=== PATIENT | female | born 1970 | race Caucasian/White ===

== ENCOUNTER → 2016-08-26 | Day surgery (SDC) | payer BC ==
[2016-08-16 09:27] VITALS: Ht 166.4 cm; Wt 63.6 kg
[~2016-08-26] VITALS: Ht 166.4 cm; Wt 63.6 kg
[~2016-08-26] MED LIST: BUPR-79 PO; DEXAMETHASONE SOD INJ 4 MG/ML VIAL ONE; ENDOSCOPIC MARKER 5 ML SYR ONE; FENTANYL CITRATE INJ 50 MCG/1 ML 2 ML VIAL ONE; LIDOCAINE HCL 2% 2 ML VIAL (20MG/ML) ONE; LIOT5TAB9 PO; METHYLENE BLUE 1% 10 ML VIAL ONE; MIDAZOLAM HCL 1 MG/ML 2ML VIAL ONE; ONDANSETRON INJ 2 MG/ML 2 ML VIAL ONE; PROPOFOL IV EMULSION 10 MG/ML 20 ML VIAL IV ONE; SODIUM CHLORIDE 0.9% 500ML 500 ML IV ONE
--- NOTE | 2016-08-26 13:12 | Endo History and Physical ---
History & Physical Date of Service: Aug 26, 2016. Chief Complaint: large polyp Referring Physician: Mayra NORIEGA History of Present Illness sigmoid colon polyp for EMR Past Surgical History Hx Cardiac Surgery: No Hx Internal Defibrillator: No Hx Pacemaker: No Hx Abdominal Surgery: No Hx of Implantable Prosthesis: No Hx Post-Op Nausea and Vomiting: Yes Hx Cancer Surgery: No Hx Thoracic Surgery: No Hx Orthopedic: Yes (RT SHOULDER, RT HIP) Hx Urinary Tract Surgery: No Family History Colon CA Social History Smoking Status: Former Smoker Hx Substance Use: No Hx Alcohol Use: Yes (2-3 DRINKS/NIGHT) Allergies Coded Allergies: Codeine (Verified Allergy, Unknown, RASH AND HIVES, 08/16/16) Current Medications Reported Home Medications Medications Dose Route/Sig Max Daily Dose Days Date Category Wellbutrin Sr (Bupropion HCl) 150 Mg Ertab 150 Mg PO BID 08/16/16 Reported Liothyronine Sodium 5 Mcg Tab 1 Tab PO BID 08/16/16 Reported Vital Signs Weight (Kilograms): 63.64 Height (Feet): 5 Height (Inches): 5.5 Date Time Temp Pulse Resp B/P Pulse Ox O2 Delivery O2 Flow Rate FiO2 08/26/16 12:37 37 67 20 120/71 99 Room Air Physical Exam AAO x3 Nl s1s2 Lungs CTA Abd soft NT ND + BS - CCE Assessment and Plan colonoscopy/EMR
--- NOTE | 2016-08-26 14:36 | GI REPORT ---
Procedure Date: 08/26/2016 1:01 PM THIS REPORT HAS BEEN AMENDED Addendum Number: 1 Addendum Date: 08/26/2016 3:57:11 PM The blood loss stated in the original note is incorrect. Blood loss is estimated to be 2 ml. Hemostasis was achieved at end of procedure with clips and epinephrine injection. Procedure: Colonoscopy Indications: Therapeutic procedure for colon polyps Medicines: Propofol per Anesthesia Complications: No immediate complications. Estimated blood loss: Minimal. Estimated Blood Loss: Estimated blood loss was minimal. Procedure: Pre-Anesthesia Assessment: - Prior to the procedure, a History and Physical was performed, and patient medications and allergies were reviewed. The patient's tolerance of previous anesthesia was also reviewed. The risks and benefits of the procedure and the sedation options and risks were discussed with the patient. All questions were answered, and informed consent was obtained. Prior Anticoagulants: The patient has taken no previous anticoagulant or antiplatelet agents. ASA Grade Assessment: II - A patient with mild systemic disease. After reviewing the risks and benefits, the patient was deemed in satisfactory condition to undergo the procedure. After I obtained informed consent, the scope was passed under direct vision. Throughout the procedure, the patient's blood pressure, pulse, and oxygen saturations were monitored continuously. The scope was introduced through the anus and advanced to the cecum, identified by appendiceal orifice and ileocecal valve. The colonoscopy was performed without difficulty. The patient tolerated the procedure well. The quality of the bowel preparation was good. Findings: The perianal and digital rectal examinations were normal. Pertinent negatives include normal sphincter tone, no palpable rectal lesions and no anal lesion or abnormality was detected. A 3 mm polyp was found at 10 cm proximal to the anus. The polyp was sessile. The polyp was removed with a cold biopsy forceps. Resection and retrieval were complete. Estimated blood loss was minimal. Verification of patient identification for the specimen was done by the physician and manufacturing plant technician using the patient's name and medical record number. A 30 mm polyp was found at 20 cm proximal to the anus. The polyp was multi-lobulated and sessile. An endoscopic mucosal resection was performed with initial injection and saline /methylene blue lift to lui the perimeter and lift the lesion. Area was successfully injected with 5 mL saline with methylene blue for a lift polypectomy. The polyp was removed with a piecemeal technique using a hot snare. Resection and retrieval were complete using a snare. Four hemostatic clips were successfully placed (MR conditional). Area was successfully injected with 16 mL of a 1:10,000 solution of epinephrine for hemostasis of bleeding caused by the procedure. Area was successfully injected with 10 mL of a 1:20,000 solution of epinephrine for hemostasis of bleeding caused by the procedure. The exam was otherwise without abnormality. The retroflexed view of the distal rectum and anal verge was normal and showed no anal or rectal abnormalities. Impression: - One 3 mm polyp at 10 cm proximal to the anus, removed with a cold biopsy forceps. Resected and retrieved. - One 30 mm polyp at 20 cm proximal to the anus, removed piecemeal using a hot snare. Resected and retrieved. Injected. Clips (MR conditional) were placed. - The examination was otherwise normal. - The distal rectum and anal verge are normal on retroflexion view. Recommendation: - Discharge patient to home (ambulatory). - Patient has a contact number available for emergencies. The signs and symptoms of potential delayed complications were discussed with the patient. Return to normal activities tomorrow. Written discharge instructions were provided to the patient. - Clear liquid diet today. - Repeat colonoscopy in 6 months for surveillance based on pathology results. MD Lane Betancourt MD 08/26/2016 2:35:27 PM This report has been signed electronically. Note Initiated On: 08/26/2016 1:[address] Betancourt MD 08/26/2016 3:58:31 PM This report has been signed electronically.
--- NOTE | 2016-08-26 14:38 | Discharge Instructions ---
Endoscopy Patient Instructions Date / Procedure(s) Performed Aug 26, 2016. Colonoscopy Allergy Information Coded Allergies: Codeine (Verified Allergy, Unknown, RASH AND HIVES, 08/16/16) Discharge Date / Findings Aug 26, 2016. colon polyps removed by EMR Medication Instructions Restart Stopped Medication(s): Reported Home Medications Medications Dose Route/Sig Max Daily Dose Days Date Category Wellbutrin Sr (Bupropion HCl) 150 Mg Ertab 150 Mg PO BID 08/16/16 Reported Liothyronine Sodium 5 Mcg Tab 1 Tab PO BID 08/16/16 Reported Reported Home Medications Medications Dose Route/Sig Max Daily Dose Days Date Category Wellbutrin Sr (Bupropion HCl) 150 Mg Ertab 150 Mg PO BID 08/16/16 Reported Liothyronine Sodium 5 Mcg Tab 1 Tab PO BID 08/16/16 Reported Provider Instructions Activity Restrictions - No exercising or heavy lifting for 24 hours. - Do not drink alcohol the day of the procedure. - Do not drive a car or operate machinery until the day after the procedure. - Do not make any important decisions or sign important papers in 24 hours after the procedure. Following Day: - Return to full activity which may include returning to work/school. Diet Start your diet with liquids and light foods (jello, soup, juice, toast). Then eat your usual diet if not nauseated. Treatment For Common After Affects For mild abdominal pain, bloating, or excessive gas: - Rest - Eat lightly - Lie on right side Follow-Up Information Follow-up with Mayra NORIEGA as scheduled Anesthesia Information What You Should Know You have had a procedure that required some medicine to reduce anxiety and discomfort. This treatment is called moderate sedation. After receiving the treatment, you may be sleepy, but you will be able to breathe on your own. The effects of the treatment may last for several hours. Follow these instructions along with Activity/Diet recommendations noted above: * Do NOT do anything where dizziness or clumsiness would be dangerous. * Rest quietly at home today, then you can be up and about tomorrow. * Have a responsible person stay with you the rest of today. * You may have had an I.V. today. If so, you may take the dressing off later today. Recommendations Call your doctor if: * Trouble breathing * Continuous vomiting for more than 24 hours * Temperature above 101 degrees * Severe abdominal pain or bloating * Pain not relieved by pain medicine ordered * There is increased drainage or redness from any incision * A large amount of rectal bleeding greater than 2-3 tablespoons. (If you had a polyp/s removed or have hemorrhoids, a small amount of blood - from the rectum is to be expected.) * You have any unanswered questions or concerns. IN THE EVENT OF A SERIOUS EMERGENCY, GO TO THE NEAREST EMERGENCY ROOM Your discharge instructions were prepared by provider Lane Martinez. Patient Instructions Signature Page Staci Titus Patient (or Guardian) Signature/Date: I have read and understand the instructions given to me by my caregivers. Caregiver/RN/Doctor Signature/Date: The above-named patient and/or guardian has received patient instructions on this date. + Original Patient Signature Page (only) stays with chart. Please make copy for patient.
[2016-08-26 17:49] VITALS: BP 116/66; PULSE 64; O2SAT 98
--- NOTE | 2016-08-26 19:22 | Anesthesiology Progress Note ---
Anesthesia Post Op Note Date & Time Aug 26, 2016 at 19:20 Vital Signs Pain Intensity: 3 Vital Signs Past 12 Hours Date Time Temp Pulse Resp B/P Pulse Ox O2 Delivery O2 Flow Rate FiO2 08/26/16 17:49 64 16 116/66 98 Room Air 08/26/16 16:44 57 16 150/76 97 Room Air 08/26/16 16:09 59 16 152/72 97 Room Air 08/26/16 15:39 62 16 158/83 98 Room Air 08/26/16 15:24 64 20 152/74 96 Room Air 08/26/16 15:09 64 16 141/62 97 Room Air 08/26/16 14:59 36.2 57 16 154/69 100 Room Air 08/26/16 14:49 36.2 60 16 147/66 100 Nasal Cannula 3 08/26/16 14:39 36.2 78 20 163/105 99 Nasal Cannula 3 08/26/16 14:29 36.2 81 20 176/80 100 Nasal Cannula 3 08/26/16 12:37 37 67 20 120/71 99 Room Air Notes Mental Status: alert / awake / arousable, participated in evaluation Pt Amnestic to Procedure: Yes Nausea / Vomiting: adequately controlled Pain: adequately controlled Airway Patency, RR, SpO2: stable & adequate BP & HR: stable & adequate Hydration State: stable & adequate Anesthetic Complications: no major complications apparent Pt had abdominal pain after procedure. She was observed for several hours. Dr. Martinez evaluated her several times. Her pain was improving so Dr. Martinez felt it was safe to discharge her home.
== END | disposition home or self-care (01) ==
LOC: C.GI 12:13
PROVIDERS: ATTEND Internal Medicine Gastroenterology
DX: Z09 Encounter for follow-up examination after completed treatment for conditions other than malignant neoplasm (principal); Z86.010 Personal history of colon polyps; Z98.890 Other specified postprocedural states; Z80.0 Family history of malignant neoplasm of digestive organs; Z87.891 Personal history of nicotine dependence

== ENCOUNTER → 2016-09-14 | Outpatient (CLI) | payer BC ==
[~2016-09-14] MED LIST changes: -DEXAMETHASONE SOD INJ 4 MG/ML VIAL ONE; -ENDOSCOPIC MARKER 5 ML SYR ONE; -FENTANYL CITRATE INJ 50 MCG/1 ML 2 ML VIAL ONE; -LIDOCAINE HCL 2% 2 ML VIAL (20MG/ML) ONE; -METHYLENE BLUE 1% 10 ML VIAL ONE; -MIDAZOLAM HCL 1 MG/ML 2ML VIAL ONE; -ONDANSETRON INJ 2 MG/ML 2 ML VIAL ONE; +OPTIRAY 320 IV PRN; -PROPOFOL IV EMULSION 10 MG/ML 20 ML VIAL IV ONE; -SODIUM CHLORIDE 0.9% 500ML 500 ML IV ONE
--- NOTE | 2016-09-14 15:28 | DIAGNOSTIC IMAGING REPORT ---
CT ABD/PELVIS IV AND ORAL CONT CLINICAL HISTORY: Colon carcinoma COMPARISON STUDY: None. TECHNIQUE: Following the IV administration of 119 mL of Optiray-320, CT scan of the abdomen and pelvis was performed from the lung bases to the proximal femurs. Images are reviewed in the axial, sagittal, and coronal planes. IV contrast was administered without complication. CT DOSE: 475.45 mGy.cm FINDINGS: Lower chest: The heart is normal in size and configuration, without pericardial effusion. The lung bases and pleural spaces are clear. Liver: The contrast-enhanced liver is normal in size, contour, and attenuation. There is no intrahepatic biliary ductal dilatation. The hepatic veins and portal veins are patent. Gallbladder: Unremarkable. Spleen: Normal in size and attenuation. Pancreas: Unremarkable. Adrenal glands: Unremarkable. Kidneys: There is a 5 mm left renal hypodensity likely representing a cyst. There is no hydronephrosis. Bowel: There are no transition zones indicate bowel obstruction. There is no evidence of acute appendicitis. There is no evidence of acute diverticulitis. There is mild nonspecific sigmoid wall thickening. This may simply reflect a nondistended segment. Peritoneum: There is no intraperitoneal free air or abdominal ascites. Vasculature: The abdominal aorta is normal in course and caliber. Adenopathy: None. Pelvic viscera: The bladder, and pelvic viscera are unremarkable. Skeletal structures: There is a sclerotic lesion within the left iliac bone likely representing a bone island. IMPRESSION: 1. Mild sigmoid wall thickening. This a nonspecific finding possibly secondary to a nondistended segment 2. No evidence of hepatic metastasis 3. No evidence of pathologic adenopathy Electronically signed by: Robin Bird M.D. 09/14/2016 3:27 PM Dictated Date/Time: 09/14/2016 3:21 PM
--- NOTE | 2016-09-14 15:29 | DIAGNOSTIC IMAGING REPORT ---
CT OF THE CHEST WITH IV CONTRAST CLINICAL HISTORY: Colon cancer. COMPARISON STUDY: No previous studies for comparison. TECHNIQUE: Following IV administration of 119 mL of Optiray-320, helical axial images of the chest were obtained. Images were viewed in the axial, sagittal and coronal planes. IV contrast was administered without complication. FINDINGS: No enlarged axillary, mediastinal or hilar lymph nodes are present. The size of the heart is normal. There is no pericardial effusion. Central airways are patent. No consolidation is present. Note is made of a 3 mm subpleural nodule within the left upper lobe shown on image 89 of 331. There is a 2 mm left upper lobe nodule on image 69. No pneumothorax or pleural effusion is present. No suspicious osseous lesions are present. Visualized portions of the upper abdomen are unremarkable. The abdomen and pelvis will be reported separately. IMPRESSION: 1. No convincing evidence for metastatic disease within the chest. 2. Two tiny left upper lobe nodules measuring up to 3 mm. These nodules are likely benign but should be assessed on subsequent imaging studies to ensure stability. Electronically signed by: Kahlil Michelle M.D. 09/14/2016 3:27 PM Dictated Date/Time: 09/14/2016 3:19 PM
== END | disposition home or self-care (01) ==
LOC: C.CTS 14:36
PROVIDERS: ATTEND Colon & Rectal Surgery
DX: C18.9 Malignant neoplasm of colon, unspecified (principal)

== ENCOUNTER → 2017-11-29 | Outpatient (CLI) | payer OTHER ==
--- NOTE | 2017-11-29 08:38 | DIAGNOSTIC IMAGING REPORT ---
CT OF THE CHEST WITH IV CONTRAST CLINICAL HISTORY: Colon cancer. COMPARISON STUDY: Chest CT September 14, 2016. TECHNIQUE: Following IV administration of 100 mL of Optiray-320, helical axial images of the chest were obtained. Sagittal and coronal reconstructions were viewed as well as maximal intensity projections on an independent 3-D workstation. A dose lowering technique was utilized adhering to the principles of ALARA. FINDINGS: No enlarged axillary, mediastinal or hilar lymph nodes are present. The size of the heart is normal. There is no pericardial effusion. The abdomen and pelvis will be reported separately. Central airways are patent. A few tiny left upper lobe nodules which measure up to 3 mm are unchanged since exam of September 14, 2016. These are likely benign. There are no new pulmonary nodules. There is no consolidation. No suspicious osseous lesions are present. IMPRESSION: No evidence of metastatic disease within the chest. Electronically signed by: Kahlil Michelle M.D. 11/29/2017 8:37 AM Dictated Date/Time: 11/29/2017 8:28 AM
--- NOTE | 2017-11-29 08:39 | DIAGNOSTIC IMAGING REPORT ---
ABD/PELVIS IV AND ORAL CONT CT DOSE: 521.37 mGy.cm HISTORY: Colon carcinoma MALIGNANT NEOPLASM OF COLON TECHNIQUE: Multiaxial CT images of the abdomen and pelvis were performed following the use of intravenous and oral contrast. A dose lowering technique was utilized adhering to the principles of ALARA. COMPARISON STUDY: 09/14/2016 FINDINGS: Lung bases are clear. Liver spleen and pancreas enhance uniformly. Gallbladder is negative for distention. Kidneys negative for mass or hydronephrosis. The bowel pattern is considered nonobstructive. The appendix is normal. There is been interval segmental resection of the mid sigmoid. No significant bowel wall thickening. Ladder is midline. There is no significant abdominal pelvic or inguinal adenopathy. Survey evaluation of the osseous structures show several benign foci of sclerosis but no true lytic or blastic process is appreciated. Several benign bone islands are present and are unchanged. IMPRESSION: 1. Interval resection of the mid sigmoid colon. 2. Bowel pattern is otherwise unremarkable. 3. No acute process in the abdomen or pelvis. The above report was generated using voice recognition software. It may contain grammatical, syntax or spelling errors. Electronically signed by: Pavel Marsh M.D. 11/29/2017 8:37 AM Dictated Date/Time: 11/29/2017 8:32 AM
== END | disposition home or self-care (01) ==
LOC: C.CTS 08:06
PROVIDERS: ATTEND Colon & Rectal Surgery
DX: C18.9 Malignant neoplasm of colon, unspecified (principal)